=== PATIENT | female | born 1970 | race Caucasian/White ===

== ENCOUNTER → 2016-06-05 | Outpatient (REF) | payer OTHER | LOC: M SFHCWAGY 15:25 | PROVIDERS: ATTEND Nurse Practitioner Family | DX: Z12.4 Encounter for screening for malignant neoplasm of cervix (principal) ==

== ENCOUNTER → 2016-06-05 | Outpatient (CLI) | payer OTHER ==
--- NOTE | 2016-06-05 16:06 | REPMRS ---
Patient History The patient states she had a clinical breast exam in 05/2016. Family history of colorectal cancer in maternal grandfather under age 50, ovarian cancer in maternal grandmother at age 50 or over, and breast cancer in maternal cousin under age 50. Taking hormonal contraceptives for 27 years. Digital Woman Screen Mammo: June 05, 2016 - Exam #: [id number] Bilateral CC and MLO view(s) were taken. Technologist: Kady Ramires, Technologist Prior study comparison: May 05, 2015, digital woman screen mammo performed at [facility]. February 26, 2014, digital woman screen mammo performed at [facility]. FINDINGS: The breast tissue is heterogeneously dense. This may lower the sensitivity of mammography. There has been no change in the appearance of the mammogram from the prior studies. There is a moderate amount of residual fibroglandular tissue which is fairly symmetric. There is no interval development of dominant mass, areas of architectural distortion, or clustered microcalcification typical of malignancy. ASSESSMENT: BI-RADS/ACR category 1 mammogram. Negative. Recommendation Routine screening mammogram in 1 year (for women over age 40). This mammogram was interpreted with the aid of an FDA-approved computer-aided dectection system. Electronically Signed By: Akash Kessler MD 06/05/16 [id number]
== END ==
LOC: M WHC 15:14
PROVIDERS: ATTEND Nurse Practitioner Family
DX: Z12.31 Encounter for screening mammogram for malignant neoplasm of breast (principal)

== ENCOUNTER → 2017-06-06 | Outpatient (REF) | payer OTHER ==
[2017-06-08 14:10] LABS: HPV HYBRID CAPTURE II Negative (Negative)
== END ==
LOC: M SFHCWAGY 15:56
DX: Z12.4 Encounter for screening for malignant neoplasm of cervix (principal); Z12.31 Encounter for screening mammogram for malignant neoplasm of breast

== ENCOUNTER → 2017-06-06 | Outpatient (CLI) | payer OTHER | LOC: M WHC 15:38 | DX: Z12.31 Encounter for screening mammogram for malignant neoplasm of breast (principal) | CPT/HCPCS: 77067 ==

== ENCOUNTER → 2018-06-10 | Outpatient (CLI) | payer OTHER ==
--- NOTE | 2018-06-11 09:25 | REPMRS ---
Patient History The patient states she had a clinical breast exam in 05/2018. Family history of ovarian cancer at age 50 or over in maternal grandmother, breast cancer under age 50 in maternal cousin, colorectal cancer at age 50 or over in paternal grandmother, breast cancer in maternal aunt. Taking hormonal contraceptives for 28 years. 3D TOMOSYNTHESIS WAS PERFORMED. Digital Woman Screen Mammo: June 10, 2018 - Exam #: [id number] Bilateral CC and MLO view(s) were taken. Technologist: Janelle Ortiz Technologist Prior study comparison: June 06, 2017, digital woman screen mammo performed at [facility] [employer] [facility]. June 05, 2016, digital woman screen mammo performed at [facility] [employer] [facility]. FINDINGS: The breast tissue is heterogeneously dense. This may lower the sensitivity of mammography. There has been no change in the appearance of the mammogram from the prior studies. There is a moderate amount of residual fibroglandular tissue which is fairly symmetric. There is no interval development of dominant mass, areas of architectural distortion, or clustered microcalcification typical of malignancy. Assessment: BI-RADS/ACR category 1 mammogram. Negative Mammogram. Recommendation Routine screening mammogram in 1 year (for women over age 40). This mammogram was interpreted with the aid of an FDA-approved computer-aided dectection system. Electronically Signed By: Akash Kessler MD 06/11/18 0924
== END ==
LOC: M WHC 15:41
PROVIDERS: ATTEND Nurse Practitioner Family
DX: Z12.31 Encounter for screening mammogram for malignant neoplasm of breast (principal); Z80.41 Family history of malignant neoplasm of ovary; Z92.0 Personal history of contraception

== ENCOUNTER → 2018-09-24 | Outpatient (REF) | payer OTHER | LOC: M SFHCWAGY 14:08 | PROVIDERS: ATTEND Nurse Practitioner Family | DX: N95.1 Menopausal and female climacteric states (principal) ==

== ENCOUNTER → 2019-04-26 | Outpatient (REF) | payer OTHER | LOC: M LAB REF 17:10 | PROVIDERS: ATTEND Physician Assistant | DX: R30.0 Dysuria (principal) ==

== ENCOUNTER → 2019-09-02 | Outpatient (CLI) | payer OTHER ==
--- NOTE | 2019-09-03 09:08 | REPMRS ---
Patient History The patient states she had a clinical breast exam in August 2019. Family history of ovarian cancer at age 50 or over in maternal grandmother, breast cancer under age 50 in maternal cousin, colorectal cancer at age 50 or over in paternal grandmother, breast cancer in maternal aunt. Taking hormonal contraceptives for 29 years. Digital Woman Screen Mammo: September 02, 2019 - Exam #: [id number] Bilateral CC and MLO view(s) were taken. Technologist: Ewelina Roldan Technologist Prior study comparison: June 10, 2018, bilateral digital woman screen mammo performed at [facility]. June 06, 2017, digital woman screen mammo performed at [facility]. June 05, 2016, digital woman screen mammo performed at [facility]. FINDINGS: There are scattered fibroglandular densities. The Volpara volumetric breast density category is:B. There has been no change in the appearance of the mammogram from the prior studies. There is a mild amount of scattered fibroglandular density which is fairly symmetric. There is no interval development of dominant mass, architectural distortion, or grouped microcalcification suggestive of malignancy. 3-D tomosynthesis shows no additional findings. Assessment: BI-RADS/ACR category 1 mammogram. Negative Mammogram. Recommendation Routine screening mammogram of both breasts in 1 year (for women over age 40). This patient's Lifetime Breast Cancer Risk is estimated at 14.0 %. This mammogram was interpreted with the aid of an FDA-approved computer-aided dectection system. Electronically Signed By: Marcos Adams MD 09/03/19 0946
== END ==
LOC: M WHC 14:58
PROVIDERS: ATTEND Nurse Practitioner Family
DX: Z12.31 Encounter for screening mammogram for malignant neoplasm of breast (principal)

== ENCOUNTER → 2020-09-02 | Outpatient (CLI) | payer OTHER ==
--- NOTE | 2020-09-02 17:12 | REPMRS ---
Patient History The patient states she had a clinical breast exam in August 2020. Family history of ovarian cancer at age 50 or over in maternal grandmother, breast cancer under age 50 in maternal cousin, colorectal cancer at age 50 or over in paternal grandmother, breast cancer in maternal aunt, breast cancer at age 35 in niece. Taking hormonal contraceptives for 29 years. Patient states no breast complaints today. Patient has signed MRS History Sheet. Digital Woman Screen Mammo: September 02, 2020 - Exam #: [id number] Bilateral CC and MLO view(s) were taken. Technologist: Carola Oviedo, Technologist Prior study comparison: September 02, 2019, bilateral digital woman screen mammo performed at [facility]. June 10, 2018, bilateral digital woman screen mammo performed at [facility]. FINDINGS: There are scattered fibroglandular densities. Screening. Digital screening (2D) mammography was performed bilaterally in the CC and MLO projections. Additionally, breast tomosynthesis (3D mammography) was performed bilaterally in the CC and MLO projections. Todays exam was compared to the prior exam/exams. By history, the patient has no complaints of a palpable breast abnormality or other significant breast complaints. The breasts are unchanged in size and shape. There are no jovita-soft tissue densities or spiculated masses. There is no internal architectural distortion. There are no suspicious jovita-calcific clusters. Skin thickening or nipple retraction is not present. IMPRESSION: BI-RADS Category 2- Benign Findings. There is no evidence of malignant alteration of the breasts. Followup examination recommended in one year. The Volpara volumetric breast density category is B, there are scattered areas of fibroglandular densities. This mammogram was read with the assistance of [employer],an FDA approved computer aided detection system for mammography. The lifetime Tyrer-Cuzick score is 13.7 % Negative x-ray reports should not delay surgical consultation if a dominant or clinically suspicious mass is present. Not all breast cancers can be identified by mammography. Therefore, we recommend that you continue to perform regular breast self-examination and physical examination and then promptly contact your physician of any concerns or changes. Adenosis and dense breasts may obscure an underlying neoplasm. Assessment: BI-RADS/ACR category 2 mammogram. Benign Findings. Recommendation Routine screening mammogram of both breasts in 1 year. Electronically Signed By: Alonso José DO 09/02/20 [id number]
== END ==
LOC: M WHC 15:20
PROVIDERS: ATTEND Obstetrics & Gynecology
DX: Z12.31 Encounter for screening mammogram for malignant neoplasm of breast (principal); Z80.41 Family history of malignant neoplasm of ovary; Z80.3 Family history of malignant neoplasm of breast; Z92.0 Personal history of contraception

== ENCOUNTER → 2020-09-02 | Outpatient (REF) | payer OTHER | LOC: M PLALAB 16:17 | PROVIDERS: ATTEND Obstetrics & Gynecology | DX: N95.1 Menopausal and female climacteric states (principal); Z53.9 Procedure and treatment not carried out, unspecified reason ==

== ENCOUNTER → 2020-09-05 | Outpatient (REF) | payer OTHER ==
[2020-09-05 14:45] LABS: FOLLICLE STIMULATING HORMONE 41.4 mIU/mL; LUTEINIZING HORMONE 10.2 mIU/mL
== END ==
LOC: M PLALAB 12:09
PROVIDERS: ATTEND Obstetrics & Gynecology
DX: N95.1 Menopausal and female climacteric states (principal)

== ENCOUNTER → 2020-09-06 | Outpatient (REF) | payer OTHER | LOC: M PLALAB 11:03 | PROVIDERS: ATTEND Obstetrics & Gynecology | DX: N95.1 Menopausal and female climacteric states (principal) ==

== ENCOUNTER → 2020-10-11 | Outpatient (CLI) | payer OTHER ==
[2020-10-11 14:18] LABS: FOLLICLE STIMULATING HORMONE 68.2 mIU/mL; LUTEINIZING HORMONE 23.3 mIU/mL
== END ==
LOC: M PLALAB 10:29
PROVIDERS: ATTEND Obstetrics & Gynecology
DX: N95.1 Menopausal and female climacteric states (principal)

== ENCOUNTER → 2021-09-04 | Outpatient (CLI) | payer OTHER | LOC: M PLAIMG 09:24 | PROVIDERS: ATTEND Physician Assistant | DX: M79.671 Pain in right foot (principal); M76.72 Peroneal tendinitis, left leg; M72.2 Plantar fascial fibromatosis; R20.2 Paresthesia of skin ==

== ENCOUNTER → 2023-01-21 | Outpatient (CLI) | payer OTHER | LOC: M WHC 15:03 | PROVIDERS: ATTEND Nurse Practitioner Family | DX: R22.31 Localized swelling, mass and lump, right upper limb (principal) ==

== ENCOUNTER → 2023-02-11 | Outpatient (CLI) | payer OTHER | LOC: M WHC 12:48 | PROVIDERS: ATTEND Nurse Practitioner Family | DX: Z12.31 Encounter for screening mammogram for malignant neoplasm of breast (principal); R92.333 Mammographic heterogeneous density, bilateral breasts; Z80.41 Family history of malignant neoplasm of ovary; Z80.3 Family history of malignant neoplasm of breast; Z80.0 Family history of malignant neoplasm of digestive organs; R92.8 Other abnormal and inconclusive findings on diagnostic imaging of breast ==

== ENCOUNTER → 2023-03-05 | Outpatient (CLI) | payer OTHER | LOC: M WHC 14:07 | PROVIDERS: ATTEND Nurse Practitioner Family | DX: Z12.31 Encounter for screening mammogram for malignant neoplasm of breast (principal) | CPT/HCPCS: 76642; 77065; G0279 ==

== ENCOUNTER → 2023-03-21 | Outpatient (CLI) | payer OTHER ==
[~2023-03-21] MED LIST: HYDR12.55 PO
[2023-03-21 10:14] VITALS: TEMP 98.3
[2023-03-21 13:44] VITALS: BP 112/62; O2SAT 99
== END ==
LOC: M WHCPRO 09:36
PROVIDERS: ATTEND Nurse Practitioner Family
DX: R92.8 Other abnormal and inconclusive findings on diagnostic imaging of breast (principal); N63.11 Unspecified lump in the right breast, upper outer quadrant; C50.411 Malignant neoplasm of upper-outer quadrant of right female breast

== ENCOUNTER → 2023-04-24 | Outpatient (REF) | payer OTHER | LOC: M SFHCWAGY 18:23 | PROVIDERS: ATTEND Specialist | DX: Z01.419 Encounter for gynecological examination (general) (routine) without abnormal findings (principal) | CPT/HCPCS: 87624; G0123 ==

== ENCOUNTER → 2023-10-17 | Outpatient (REF) | payer OTHER ==
[2023-10-17 16:35] LABS: BASO % 0.2 % (0.0-1.0); EOS # 0.1 10^3/uL (0.0-0.5); HEMATOCRIT 35.3 % (36.0-47.0); HEMOGLOBIN 11.2 g/dl (12.0-15.5); LYMPH # 1.2 10^3/uL (1.5-5.0); LYMPH % 24.2 % (24.0-44.0); MEAN CORPUSCULAR HEMOGLOBIN 29.9 pg (27.0-33.0); MEAN CORPUSCULAR HGB CONC 31.7 g/dl (32.0-36.5); MEAN CORPUSCULAR VOLUME 94.1 fl (80.0-96.0); MONO # 0.7 10^3/uL (0.0-0.8); MONO % 13.9 % (2.0-8.0); NEUTROPHILS # 2.9 10^3/uL (1.5-8.5); NEUTROPHILS % 59.3 % (36.0-66.0); PLATELET COUNT, AUTOMATED 352 10^3/uL (150-450); RED BLOOD COUNT 3.75 10^6/uL (4.00-5.40)
[2023-10-17 16:44] LABS: APPEARANCE, URINE CLEAR (CLEAR); BACTERIA, URINE AUTO NEGATIVE (NEGATIVE); BILIRUBIN, URINE AUTO NEGATIVE (NEGATIVE); BLOOD, URINE BLOOD NEGATIVE (NEGATIVE); COLOR, URINE COLORLESS (YELLOW); GLUCOSE, URINE (UA) AUTO NEGATIVE (NEGATIVE); KETONE, URINE AUTO NEGATIVE (NEGATIVE); LEUKOCYTE ESTERASE, URINE AUTO NEGATIVE (NEGATIVE); NITRITE, URINE AUTO NEGATIVE (NEGATIVE); PROTEIN, URINE AUTO NEGATIVE (NEGATIVE); RBC, URINE AUTO 0 /HPF (0-3); SPECIFIC GRAVITY URINE AUTO 1.001 (1.002-1.035); SQUAMOUS EPITHELIAL CELL UR AU 0 /HPF (0-6); UROBILINOGEN, URINE AUTO 0.2 mg/dL (0.0-2.0); WBC, URINE AUTO 0 /HPF (0-3)
[2023-10-17 17:03] LABS: CREATININE,RANDOM URINE 20.5 MG/DL
[2023-10-17 17:04] LABS: COMPLEMENT C3 135.2 MG/DL (90.0-170.0); COMPLEMENT C4 25.8 MG/DL (12-36)
[2023-10-17 17:15] LABS: TOTAL PROTEIN,RANDOM URINE < 6.0 MG/DL (0.0-14.0)
== END ==
LOC: M SFHCRHEU 15:05
PROVIDERS: ATTEND Internal Medicine
DX: R76.8 Other specified abnormal immunological findings in serum (principal)

== ENCOUNTER → 2024-05-15 | Outpatient (REF) | payer OTHER ==
[2024-05-19 13:23] LABS: HPV APTIMA Not Detected (Not Detected)
== END ==
LOC: M SFHCWAGY 17:11
PROVIDERS: ATTEND Specialist
DX: R87.610 Atypical squamous cells of undetermined significance on cytologic smear of cervix (ASC-US) (principal)
CPT/HCPCS: 87624; G0123

== ENCOUNTER → 2024-11-13 | Outpatient (CLI) | payer OTHER | LOC: M PLARAD 08:22 | PROVIDERS: ATTEND Physician Assistant | DX: H93.11 Tinnitus, right ear (principal) ==